=== PATIENT | male | born 1945 | race Caucasian/White ===

== ENCOUNTER 2019-06-05 12:58 | Inpatient (IN) | payer OTHER, BC ==
[~2019-06-05] VITALS: Ht 180.3 cm; Wt 65.3 kg
[2019-06-05 12:58] VITALS: BP 138/70
[2019-06-05 13:17] LABS: ABSOLUTE NEUTROPHILS 4.3 thou/uL (1.4-8.2); BASOPHILS 0.4 % (0.0-2.0); HEMATOCRIT 38.3 % (42.0-52.0); HEMOGLOBIN 12.7 gm/dL (14.0-18.0); LYMPHOCYTES 18.6 % (24.0-44.0); MCH 29.7 pg (26.0-34.0); MCHC 33.1 g/dL (28.0-37.0); MCV 89.5 fL (80.0-100.0); MONOCYTES 8.3 % (1.0-8.0); PLATELET COUNT 175 thou/uL (150-400); POLYS 71.7 % (36.0-66.0); RBC 4.28 mil/uL (4.50-6.00); RDW 14.4 % (10.5-14.5)
[2019-06-05 13:18] LABS: URINE BILIRUBIN NEGATIVE (Negative); URINE BLOOD NEGATIVE (Negative); URINE CLARITY CLEAR; URINE COLOR YELLOW; URINE GLUCOSE-RANDOM* NEGATIVE (Negative); URINE KETONES NEGATIVE (Negative); URINE LEUKOCYTES-REFLEX NEGATIVE (Negative); URINE NITRITE-REFLEX NEGATIVE (Negative); URINE PROTEIN (DIPSTICK) NEGATIVE (Negative); URINE UROBILINOGEN 0.2 E.U./dl (0.2-1.0)
[2019-06-05] MEDS ORDERED: NORVASC10 MG PO (13:23)
[2019-06-05] MEDS ORDERED: ABILIFY 5 MG TAB5 MG PO (13:23)
[2019-06-05] MEDS ORDERED: DEPAKOTE SPRIN125 MG PO (13:24)
[2019-06-05] MEDS ORDERED: BENEFIBER1 EAC1 PO (13:24)
[2019-06-05] MEDS ORDERED: ASPIR 8181 MG PO (13:24)
[2019-06-05] MEDS ORDERED: NORCO 5-325 TA1 EAC1 PO (13:24)
[2019-06-05] MEDS ORDERED: UNICOMPLEX M TA1 TA1 PO (13:25)
[2019-06-05] MEDS ORDERED: LEVAQUIN 500 M500 M2 PO (13:25)
[2019-06-05] MEDS ORDERED: REMERON15 MG PO (13:25)
[2019-06-05] MEDS ORDERED: SEROQUEL 25 MG25 M1 PO ×2 (13:26→13:27)
[2019-06-05] MEDS ORDERED: CLARITIN10 MG PO (13:27)
[2019-06-05] MEDS ORDERED: ZOLOFT50 MG PO (13:27)
[2019-06-05] MEDS ORDERED: ATIVAN0.5 MG PO (13:27)
[2019-06-05] MEDS ORDERED: ZANTAC 150MG T150 M1 PO (13:27)
[2019-06-05] MEDS ORDERED: AMBIEN 5 MG TABL5 M1 PO (13:28)
[2019-06-05] MEDS ORDERED: MAPAP500 MG PO (13:28)
[2019-06-05 13:29] LABS: ANION GAP 5 mmol/L (7-16); BUN 24 mg/dL (7-18); CALCIUM 9.5 mg/dL (8.5-10.1); CHLORIDE 104 mmol/L (98-107); CO2 32 mmol/L (21-32); CREATININE 1.1 mg/dL (0.7-1.3); GLUCOSE 112 mg/dL (74-106); POTASSIUM 3.8 mmol/L (3.5-5.1); SODIUM 141 mmol/L (136-145)
[2019-06-05 13:31] LABS: AMP/METHAMP Negative (Negative); BARBITURATES Negative (Negative); BENZODIAZEPINES POSITIVE (Negative); COCAINE Negative (Negative); METHADONE Negative (Negative); OPIATES POSITIVE (Negative); PCP Negative (Negative)
[2019-06-05 13:38] LABS: TROPONIN-I <0.06 ng/mL (<0.06)
--- NOTE | 2019-06-06 00:35 | NUR ---
Pt still attempted to get out of bed. pt still agitated and combative. security called to help reposition pt back in bed
--- NOTE | 2019-06-06 08:01 | EKG ---
[address] [address] ELECTROCARDIOGRAM REPORT Name: BIANCAANATOLIY Room #: 170-7 ADM IN M.R.#: [id number] Admission: 06/05/19 Attend Phys: Kaleb Ugalde DO Discharge: Date of : 41 Report #: [id number] THIS REPORT FOR: //name// [facility] ED Test Date: 2019-06-05 Test Time: 13:12:55 Pat Name: ANATOLIY VALENZUELA Department: Room: 170 Gender: M Technical Writing Lead/Mgr: elroy : 1945 Requested By: Toribio Mckinney Order Number: [id number] MD: Charlie Foster Measurements Intervals Rosie Rate: 108 P: 86 MN: 182 QRS: 82 QRSD: 93 T: 83 QT: 332 QTc: 445 Interpretive Statements Sinus tachycardia Ventricular premature complex Borderline right axis deviation Artifact in lead(s) I,II,aVR,aVL No previous ECG available for comparison Electronically Signed On 06-06-2019 8:01:25 CDT by Charlie Foster [email or web address] <ELECTRONICALLY SIGNED> By: Charlie Foster MD [id number] 11 11 Charlie Foster MD /DANE
--- NOTE | 2019-06-06 08:43 | NUR ---
CALLED AND MESSAGE LEFT TO CHECK STATUS ON BED.
--- NOTE | 2019-06-06 09:00 | NUR ---
ED NURSE CALLED TO GET ROOM # AND GIVE REPORT TO INPATIENT NURSE, WAS TOLD THAT THE NURSE TAKING THE PT WAS ABOUT TO STEP OFF THE UNIT AND LEAVING ONLY 1 NURSE ON THE UNIT WITH 16 PATIENTS, AND ED NURSE WAS ASKED TO WAIT 15 MINUTES TO CALL AGAIN AND GIVE REPORT
--- NOTE | 2019-06-06 09:35 | NUR ---
PT ARRIVED TO ROOM VIA CART FROM ER WITH . PT RESISTIVE TO VITALS AND CARES. ABLE TO FINISH ADMISSION WITH NUVIA MCGRATH. PT HOLDING HANDS AND RESTLESS. PT TRYING TO GET OUT OF BED. GOT PT SHOES FROM HOME. PT WALKING AROUND ROOM WITH STAFF OR . PT NOT ABLE TO CARRY A CONVERSATION.
[2019-06-06 09:51] VITALS: BP 139/87
--- NOTE | 2019-06-06 12:25 | NUR ---
INITIATED 1:1 CARE FOR SAFETY FOR PATIENT.
--- NOTE | 2019-06-06 16:21 | NUR ---
DENILSON spoke with yusra OREILLY for [facility] [phone]. She will be working with pt's spouse regarding inpt stay and added support. Yusra would like an update when pt is d/c to provide continuation of care.
--- NOTE | 2019-06-06 16:25 | NUR ---
GAVE IM INJECTION OF ANTIBIOTIC. PT NEEDED HELD BY ANOTHER RN. PT GRABBING STAFF ARMS AND PULLING THEM. PT NOT RESPONDING TO COMMANDS. PT NOT WANTING TO SIT AT TABLE FOR DINNER. PT DID TAKE DEPAKOTE SPINKLE WITH SOME PUDDING. DID SPIT AFTER ON ROOM MATE BED, LOOKED LIKE SALIVA.
--- NOTE | 2019-06-06 17:04 | NUR ---
ADM ZYPREXIA 5MG IM FOR AGITATION. PT IN DINNING ROOM AND NOT WANTING TO EAT, PT PULLING AND GRABBING STAFF ARMS, PT INTRUSIVE WITH OTHER PATIENTS. PT PULLING AT FOOD CART.
--- NOTE | 2019-06-07 05:42 | NUR ---
191-Report received and care assumed. Nixon was wandering around the day room and hallways with the 1 on 1 sitter near him. He was notably intrusive with others in the day room, getting very close to them and touching them. He was noted responding to AH picking at unseen objects near the floor, at times. He paced fast into others rooms also. He did not speak words, pulled at staff with his arms and swung at staff also. He was medication compliant with meds. crushed, water was encouraged with staff feeding him, but he drank very little if any, and he spit it out on the floor also. He was given prn Zyprexa 5 mg. po at 2105 for agitation and it was somewhat effective. He then slept for an hour then became restless laying in bed, talking to unseen others moving about almost constantly. called about his insomnia and restlessness and order given for Seroquel 25 mg. po x 1 now at 0030, which was ineffective. He was not aggressive but was restless with insomnia and talking to unseen others all nite.
[2019-06-07 07:00] VITALS: BP 139/80
--- NOTE | 2019-06-07 07:04 | NUR ---
The pt. was aggressive with cares this morning and was given Zyprexa 5 mg. po prn. Will monitor for effective from day shift nurse.
[2019-06-07 08:00] VITALS: BP 139/80
--- NOTE | 2019-06-07 10:36 | NUR ---
assumed pt care report received from nurse. pt is alert, oriented to person. lying in bed. vss. medication given crushed with apple sauce. sitter 1:1 in room. pt refused breakfast. pt became agitated and try to get out of bed around 1000. thorazine im given as ordered. bed alarm on. sitter in room. will continue to monitor
[2019-06-07 19:43] VITALS: BP 132/79
--- NOTE | 2019-06-08 03:27 | NUR ---
Care assumed of patient at 1915: Patient laying in bed at start of shift with sitter at bedside. Patient restless and agitated. Patient sliding up and down in bed, rolling side to side, kicking legs out of bed. Patient grabbing at the air, pointing to the anderson. Unknown what patient is seeing. Patient cursing toward the air. Requiring constant re-direction which is not helpful or effective. Patient declining to leave on a brief, pants, blankets. Staff attempted to provide a snack and drink, which he declined. Staff assisted with urinal, which he was not able to use. Patient squeezed and broke the cup he was holding and spilled water on staff. Linens needed to be changed. Patient hitting, cursing and kicking. Required staff x3. Patient did take one small bite of pudding with medications crushed. After 1 hour, patient remained aggressive and restless. Patient provided Thorazine IM. Patient was able to fall asleep approximately 1 hour later and has been resting quietly since.
[2019-06-08 07:50] VITALS: BP 147/78
--- NOTE | 2019-06-08 11:09 | NUR ---
SOMULENT SO FAR THIS AM-ROUSABLE TO TACTILE/VERBAL STIMULI- DID EAT BREAKFAST AND TAKE AM MEDS WHEN FED BY THIS RN. NOTED TO HAVE SOME COUGHING AFTER DRINKING THIN LIQUIDS AND MD NOTIFIED OF ABOVE DURING RTREATMENT TEAM. BP 147/78-P-96 R-14. WILL STAY AWAKE FOR BRIEF PERIODS OF TIME BEFORE FALLING BACK TO SLEEP-DEEP SNORING RESPIRATONS NOTED.
--- NOTE | 2019-06-08 12:20 | NUR ---
1130 awake and attempting to crawl out OF BED-COMBATIVE WITH BRIEF CHANGE AND PERINEAL CARE-HITTING,ATTEMPTING TO PINCH AND KICK NURSING STAFF-TOOK DENTURES OUT AND THREW THEM AT NURSE. ASSISTED INTO WC WITH 3 STAFF AND LAP BELT APPLIED-TO DINING ROOM AND SWALLOW EVAL BEING ATTEMPTED HOWEVER PT IS SWINGING AT SPEECH THERAPY STAFF AND ATTEMPTING TO KICK HER. THORAZINE 25MG IM IN LEFT DELTOID FOR SEVERE AGITATION. REMAINS ON 1;1
[2019-06-08 19:32] VITALS: BP 96/84
[2019-06-09 09:16] VITALS: BP 114/86
--- NOTE | 2019-06-09 10:17 | H ---
[facility] [place] [address] HISTORY AND PHYSICAL Name: ANATOLIY VALENZUELA Room #: 526A-A ADM IN M.R.#: [id number] Admission: 06/05/19 Attend Phys: Kaleb Ugalde DO Discharge: Date of : 43 Report #: [id number] THIS REPORT FOR: //name// CC: Kaleb Ugalde FAM unknown NO PCP DATE OF SERVICE: 06/05/2019 INPATIENT PSYCHIATRIC EVALUATION ATTENDING PHYSICIAN: Kaleb Ugalde DO MANAGER STRATEGIC: Jama Iglesias MD REASON FOR ADMISSION: The patient will sign out 911 from the [facility] afternoon of 06/05/2019 and was kept in the Emergency Room overnight due to lack of bed availability. HISTORY OF PRESENT ILLNESS: A 73-year-old male with an advanced Alzheimer's dementia. He had been combative for 3 days at the [facility] in [place], [place], was running into people, grabbing, spitting, he spit in the eye of police liaison. He has not had a recent fever. Glucose is 111 en route. PAST MEDICAL HISTORY: Alzheimer's disease. He was placed in split pass by EMS staying for protection. He was aggressive in the ER. HOME MEDICATIONS: Include amlodipine, aripiprazole, aspirin, Depakote 125 mg p.o. t.i.d., levofloxacin 500 mg daily, mirtazapine 15 mg p.o. at bedtime, Seroquel 25 mg p.o. b.i.d. and 25 mg p.o. at bedtime, ranitidine, sertraline 50 mg daily and p.r.n. Ambien. ALLERGIES: Include LISINOPRIL and LOSARTAN. REVIEW OF SYSTEMS: Cannot be obtained due to the patient will not answer questions. Weight 70.31 kilograms. PHYSICAL EXAMINATION: Nonfocal. He had an EKG done in the ER, which showed ventricular premature complex. No STEMI, sinus tachycardia, rate was 108. On his lab work from the ER, sodium 141, potassium 3.8, chloride 104, bicarbonate 32, anion gap 5, BUN 24, creatinine 1.1, estimated GFR 65, glucose 112, calcium 9.5. Troponin less than 0.06. White blood cell count 6.0, H and H 12.7 and 38.3, platelet count 175. UDS is positive for opiates, benzodiazepines. Urinalysis was negative. CT scan showed ventricular and sulcal prominence may represent atrophy, a component of NPH is not excluded. At this point, I would [address] [address] HISTORY AND PHYSICAL Name: ANATOLIY VALENZUELA Lyric Room #: 526A-A ADM IN M.R.#: [id number] Admission: 06/05/19 Attend Phys: Kaleb Ugalde, DO Discharge: Date of : 43 Report #: [id number] view his dementia as way to progress to warrant investigation for normal pressure hydrocephalus. In addition, MRI was from 08/2018, which showed ventricular and sulcal prominence is stable and unchanged, so the MRI comparison did not suggest NPH. His , I spoke to Zoila who is kind enough to give a us a typed illness summary. PAST MEDICAL AND SURGICAL HISTORY: On 05/12/2019, hospitalized for UTI and aggressive combative behavior. On 11/27/2018, admitted to the [facility]. On 08/15/2017, excision of cysts from the right shoulder. On 07/11/2017, excision of squamous cell carcinoma on the right arm. On 01/05/2016, excision of basal cell carcinoma on the left arm. 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 Radical prostatectomy due to adenocarcinoma. On 01/04/2013, rotator cuff repair, left shoulder. In 2014, dementia was diagnosed. Tonsillectomy as a child. Rheumatoid arthritis diagnosed in 2006 and treatments were discontinued on 2016. PRIMARY CARE PHYSICIAN: Dr. Wilfrid Gagnon. is his DPOA. VITAL SIGNS: Temperature 36.6, pulse 79, respirations 18, BP 139/80. HISTORY: Combative in [place]. FAMILY HISTORY: Alzheimer disease, significant for several biological relatives. CURRENT MEDICATIONS: In the hospital, multivitamin 1 tab p.o. daily, famotidine 20 mg at bedtime, Depakote 250 mg t.i.d. Other medications include amlodipine 10 mg p.o. daily, p.r.n. olanzapine. I think this patient discussed risks, benefits, alternatives with the including the risk of and stroke. He is so profoundly demented and so psychomotorically agitated that I am going to go ahead and use chlorpromazine regimen. PHYSICAL EXAMINATION: Lying in bed, shaking. MENTAL STATUS EXAMINATION: This is a well-developed, thin, disheveled grossly impaired male. Concentration is grossly impaired. Speech variably verbal response and making some psychomotor agitation. No psychomotor retardation. Mood and affect were congruent, constricted. No obvious self-harm or homicidality. Memory impaired. Insight impaired. Judgment impaired. Fund of knowledge well below average. FORMULATION: A 73-year-old male admitted for dementia with behavioral disturbance. [facility] [address] [place] [address] HISTORY AND PHYSICAL Name: ANATOLIY VALENZUELA Room #: 526A-A ADM IN M.R.#: [id number] Admission: 06/05/19 Attend Phys: Klaeb Ugalde DO Discharge: Date of : 43 Report #: [id number] DIAGNOSES: Major neurocognitive disorder, likely due to Alzheimer's disease with behavioral disturbance, severe. Medical comorbidities include hypertension, rheumatoid arthritis, not currently on treatment. PLAN: Discontinue other antipsychotics, start Thorazine 25 mg t.i.d. with 12.5 mg IM. ESTIMATED LENGTH OF STAY: 10-14 days. Time spent on interview, review of records, coordination of care of this patient is approximately 60 minutes. strengths: , insuresd weaknesses: advanced dementia, fragility <ELECTRONICALLY SIGNED> By: Kaleb Ugalde DO 06/09/19 1017 1015 1137 Kaleb Ugalde DO /nt
--- NOTE | 2019-06-09 17:34 | NUR ---
HAS BEEN UP IN CHAIR WITH 1:1 STAFF, HE IS COMBATIVE AND VERY LABILE, HE HAS STRUCK OUT AT STAFF, SPIT FOOD, SMASHED HIS CUP WITH FLUIDS IN IN HAS REQUIRED FEEDING, BUT DOES NOT ALWAYS SWALLOW HIS FOOD, HE HAS TAKEN MEDS AT TIMES, BUT SPIT OUT HIS MORNING DOSES OF MEDICATIONS, HE RECEIVED THORAZINE IM PRN FOR REFUSAL OF MEDS. HE DID CALM DOWN SOME BUT REMAINED FIGITY AND UNCONTROLLED, STAFF VERY CAUTIOUS WHEN COMING IN ARMS LENGTH, UNSURE HOW HE WOULD REACT, INCONTINENT OF URINE. WILL CONTINUE TO MONITOR BEHAVIORS AND FOR SAFETY.
--- NOTE | 2019-06-09 22:25 | NUR ---
Care assumed of patient at 1915: Patient alert and oriented to person only. Patient confused and forgetful. Patient laying in bed at start of shift. 1:1 sitter at bedside. Patient incontinent of bladder. Patient observed picking at the air, cursing and mumbling to nothing that is visibly present. Patient combative while completing toileting hygiene. Patient took HS medication crushed without difficulty. Attempted to provide HS snack of applesauce. Patient closed lips tight and declined to eat any. Patient fidgety and restless at times. Patient grabbing, hitting and kicking staff when agitated. Once ADLs are completed, patient becomes calmer and appears to be resting quietly at this time.
--- NOTE | 2019-06-09 23:39 | NUR ---
Late entry 06/09/19 0300: Patient remains 1:1. Patient seated in w/c in dayroom at dining table with sitter at start of shift. Patient fidgety, tapping the table, moving arms about, reaching for items in the air that are not present. Patient mumbling and cursing spontaneously. Patient swinging his arms. Nurse not able to complete initial assessment due to him hitting, kicking, trying to rock back in w/c. Nurse administered Thorazine IM at 1916. Patient appeared to become more aggressive after medication administered. Nurse attempted to provide scheduled HS medication crushed in pudding. Patient spit medication and pudding at nurse. Patient attempted to bite nurse at that time. MD notified. Order obtained for Thorazine 25mg IM 1x dose at 2044. Patient had difficulty settling down. Staff assisted patient lay down in which he slept a total of 5 hours. Patient appears to be having VH. Patient aggressive when ADL toileting cares are provided. No s/s of pain or discomfort. No signs of aggression as long as no assessment or ADLs are being completed.
--- NOTE | 2019-06-10 16:42 | NUR ---
UP IN DAYROOM IN HIS W/C HE DOES HAVE LAP CHENG FOR SAFETY, HE STILL IS VERY FIGITY AND ATTEMPTING TO STRIKE OUT AT STAFF AND OTHER PEERS, HE EATS VERY LITTLE AND JUST A FEW BITS EACH MEAL, HE DOES NOT DO WELL WITH FLUIDS, HAS REFUSED AND WILL GRAB THE CUP AND SMASH IT WITH HIS RAIL SIGNAL MECHANIC, HE HAS BEEN COMPLIANT WITH MEDICATION TODAY SO FAR, HE WAS AMBULATED TO HIS ROOM AND WAS ASSISTED BY 2 STAFF DUE TO POOR BALANCE, HE IS INCONT. OF BLADDER, HAS HAD NO BM TODAY, ALERT BUT DISORIENTED AND DISORGANIZED. CONTINUE TO MONITOR FOR BEHAVIORS AND SAFETY.
[2019-06-10 23:39] VITALS: BP 110/68
--- NOTE | 2019-06-11 01:59 | NUR ---
PATIENT WAS UP IN WC IN MAIN DINING ROOM AREA WHEN I CAME ON SHIFT AT 1900. PATIENT WAS RESTLESS AND HAD A SPONGE BLOCK IN HAND THAT HE KEPT SQUEEZING TIGHTLY. HE WAS TENSE AND WOULD PUSH MY HANDS AWAY IF HE THOUGHT I WAS TRYING TO TAKE SOMETHING FROM HIM. HE HAD THE BUSY APRON THAT I GAVE TO HIM AND HE FIDGETED WITH IT FOR A WHILE. PATIENT WAS TAKEN TO BED AND CHANGED AT BEDTIME. HE REMAINED TENSE AND SWINGING WHEN TRYING TO BE PUT TO BED. CHLORPROMAZINE 25MG IM GIVEN AT 2000 FOR AGITATION. HE CALMED AND HAS BEEN SLEEPING SOUND. HIS BP AT MIDNIGHT WAS 110/68. HE DID TAKE HIS MIDNIGHT DOSE OF CHLORPROMAZINE CRUSHED IN ICECREAM. PATIENT WITH ROUTINE ROUNDS AND CHECKED FOR INCONTINENCE EVERY 2 HOURS. BED IN LOW POSITION AND BED ALARM ON.
--- NOTE | 2019-06-11 06:24 | NUR ---
PATIENT INCONTINENT. CLEANED PERINEAL AREA WITH CLEANSING LOTION AND WET CLOTH. SCROTUM IS PINK/RED IN COLOR. LEFT AREA OPEN TO AIR WHILE HE'S IN BED. NO OPEN SORES.
[2019-06-11 08:30] VITALS: BP 131/96
--- NOTE | 2019-06-11 08:45 | NUR ---
PT SITTING AT DINNING ROOM TABLE FOR BREAKFAST. PT FIGITING WITH LAP CHENG, TRAY ITEMS, AND PUSHING TABLE AWAY FROM SELF. SPEECH THERAPY HERE TO SEE HIM TO EVALUATE SWALLOWING. PT NOT COUGHING WITH INTAKE OF WATER OR FOOD. PT TOOK MEDS OK FOR NURSE. PT UNABLE TO SAY NAME. PT BABBLES.
[2019-06-11 09:38] VITALS: BP 131/96
--- NOTE | 2019-06-11 17:58 | NUR ---
PT NEEDED ASSISTANCE WITH EATING TONIGHT. PT COOROPERATIVE WITH FEEDING. PT TOOK MEDS IN ICE CREAM.
[2019-06-11 20:50] VITALS: BP 129/66
[2019-06-11 21:57] VITALS: BP 129/66
--- NOTE | 2019-06-12 02:42 | NUR ---
PT RESTING QUIETLY IN BED AT START OF EVENING. HS MEDS CRUSHED AND GIVEN WITH ICE CREAM. RETURNED TO SLEEP AND IS CURRENTLY RESTING QUIETLY. MIDNIGHT THORAZINE HELD PATIENT IS SLEEPING.
[2019-06-12 07:30] VITALS: BP 111/73
--- NOTE | 2019-06-12 07:30 | NUR ---
PT SITTING IN DINNING ROOM AT THIS TIME. PT ABLE TO WALK WITH ASSISTANCE. PT RAMBLES AND FIGITS, APPEARS TO HALLUCINATE, TALKING TO PEOPLE AND POINTING. PT NOT ABLE TO ENGAGE IN CONVERSATION. PT NEEDS ASSIST WITH ADLS AND WITH FEEDING. PT TAKES MEDS CRUSHED WITHOUT ANY ISSUES.
[2019-06-12 20:01] VITALS: BP 141/76
--- NOTE | 2019-06-12 22:27 | NUR ---
Care assumed of patient at 1915: Patient laying in bed at start of shift. Patient easily arousable to voice. Patient alert to name only. Patient confused and forgetful. Patient easily agitated and irritable. Patient visualized cursing, mumbling, picking at the air. Appears to be experiencing tactile and visual hallucinations. Patient verbally aggressive while completing nam care and changing brief. Patient not as physically aggressive as he has been over the last week. Patient incontinent of bladder. Patient took HS medication crushed in yogurt. Declined any other bites of yogurt for snack. Drank approximately 60cc of water then started to spit it at nurses. Patient not able to answer questions appropriately. Primarily mumbles and curses. No s/s of pain or discomfort. Patient resting quietly in bed at this time.
[2019-06-13 05:48] LABS: CALCIUM 9.5 mg/dL (8.5-10.1); CREATININE 1.4 mg/dL (0.7-1.3); POTASSIUM 3.8 mmol/L (3.5-5.1)
[2019-06-13 09:00] VITALS: BP 105/82
--- NOTE | 2019-06-13 13:52 | NUR ---
SITTING IN DAYROOM IN WHEELCHIAR WITH LAP CHENG AT START OF SHIFT-YELLING OUT LOUDLY-SPEECH IS INCOHERENT AND NONSENSICLE-BUT HAS ANGRY FACIAL EXPRESSION AND IS WAVING FIST AT STAFF SITTING NEXT TO HIM. SPITTING OUT AM MEDS AND BREAKFAST-SWINGING AT NURSING STAFF OR GRABBING HOLD AND PINCHING SKIN-TWISTING ENVIRONMENTAL PROGRAMS MANAGER ARM AND REFUSING TO LET GO. THORAZINE 50MG IM GIVEN IN LEFT DELTOID-ATTEMPTING TO BITE AND SCRATCH NUSING STAFF.
--- NOTE | 2019-06-13 15:12 | NUR ---
Date of Admission: 06/05/19 Date of Activity Therapy Assessment: 06/09/19 Activity Goal: Increase positive sensory stimulation and engagement Initial Goal: 1 Group activity/day Weekly progress towards goal: Did not achieve goals Group participation level: None Behaviors observed: Patient has not tolerated recreational therapy visits since admission. Patient has been provided activity apron and soft building blocks which he has shown little interest in - i.e. throwing across table. Patient has otherwise been combative or yelling out for any further attempts. Plan: Continue to offer 1:1 activity as tolerated
[2019-06-13 20:41] VITALS: BP 147/82
[2019-06-13 23:59] VITALS: BP 147/82
--- NOTE | 2019-06-14 02:14 | NUR ---
PATIENT HAS BEEN SLEEPING ALL OF SHIFT. HE IS DIFFICULT TO AWAKEN AND BREATHING IS SHALLOW WITH APNEA AT TIMES AND THEN BACK TO SHALLOW BREATHING. UNABLE TO GIVE PATIENT ALL OF HIS HS MEDS D/T COULD NOT AWAKEN HIM ENOUGH TO SWALLOW. AFTER SOME TIME WAS ABLE TO HAVE PATIENT SWALLOW ONE TSP OF HIS CRUSHED MEDS IN YOGURT. PATIENT APPEARS COMFORTABLE IN BED. HE IS CHECKED FOR INCONTINENCE AND TURNED NEEDED. BED IN LOW POSITION AND BED ALARM ON. MONITORING FREQUENTLY. HOB ELEVATED SLIGHTLY. CONTINUING TO MONITOR.
--- NOTE | 2019-06-14 07:28 | NUR ---
Called this morning and informed her that pt will not discharge today due to continuing behaviors. voiced understanding. Also called Vero Beatty at [facility] and left a VM with same message related to his hospice care. Placed order for hospice and letter (on an Rx pad) in chart for later use.
[2019-06-14 09:29] VITALS: BP 145/63
--- NOTE | 2019-06-14 22:55 | NUR ---
Care assumed of patient at 1915: Patient sleeping in bed at start of shift. Patient continues to rest in bed at this time. Patient is somewhat arousable to touch. Patient will occasionally mumble but is not understood what he is trying to state. Patient not visualized pointing or picking at the air this evening. No s/s of AH/VH or tactile hallucinations observed. No aggression or agitation observed at this time. Patient took HS medication crushed without difficulty. Oral care has been provided x1 thus far this shift. Patient being turned every 2 hours. Incontinent of bladder x1. No s/s of pain or discomfort noted at this time. HR WNL. Respirations have been between 6-10 for this nurse. Patient has had a couple periods of apnea. Skin remains pink and intact. Patient currently receives comfort measures on hospice services. Pupils have not been reactive for this nurse. Order obtained to d/c Multivitamin po daily. Order noted. Nurse monitoring patient for any further decline and will communicate with family as indicated.
[2019-06-15 10:59] VITALS: BP 111/65
--- NOTE | 2019-06-15 13:39 | NUR ---
0700 report given by overnight shift, patient is in last stage of life. Patient's family in room with him, patient is getting morphine q 30 minutes for comfort. Chapilin has been to see patient, staff providing pallative care. Nursing maintaining comfort for and family.
--- NOTE | 2019-06-20 15:53 | D ---
[facility] [place] [address] DISCHARGE SUMMARY Name: ANATOLIY VALENZUELA Room #: 526A-A [place] ..#: [id number] Admission: 06/05/19 Attend Phys: Kaleb Ugalde DO Discharge: 06/15/19 Date of : 41 Report #: [id number] THIS REPORT FOR: //name// CC: Kaleb Ugalde FAM unknown NO PCP DATE OF SERVICE: 06/15/2019 DATE OF : 06/15/2019 TIME OF : Officially pronounced by this author at 1632 hours. ATTENDING PSYCHIATRIST THIS ADMISSION: Kaleb Ugalde DO. BAR HOSTESS: Dov Roe MD DIAGNOSES AT TIME OF : Major neurocognitive disorder, likely due to Alzheimer's disease with behavioral disturbance. The patient had a global deterioration 36 hours prior to time of . The palliative care order set had been in place for roughly 24 hours prior to time of . His and other relatives were at bedside when the patient . Obviously, there is no discharge medications. REASON FOR ADMISSION: The patient was sent from the [facility] in [place]. He had been combative 3 days prior to admission and hitting, spitting, apparently spitting at the police patrol lieutenant. HOSPITAL COURSE: The patient was admitted to the Geriatric Psychiatry Unit. Unfortunately, the patient had poor response to care requiring tranquilizers several days before he became bedridden. The patient never was able to have a coherent conversation. The patient had not been on hospice prior to admission. Due to his level of combativeness, agitation, it was not feasible for the patient to return to the nursing facility for hospice care. Myself and the staff made our best efforts to accommodate a good palliative care in the final couple of days of his stay. The patient in his bed as summarized at the beginning of note. I have entered to separate note of pronouncement. <ELECTRONICALLY SIGNED> By: Kaleb Ugalde DO 06/20/19 1553 [id number] Kaleb Ugalde DO /nt
== END 2019-06-15 18:45 | DRG 56 ==
LOC: ER 12:58 → SBH 18:05 → EROBS 18:05 → SBH 06-06 09:25
PROVIDERS: Emergency Medicine; ADMIT Psychiatry & Neurology Psychiatry
DX: G30.9 Alzheimer's disease, unspecified (principal); E43 Unspecified severe protein-calorie malnutrition; F01.51 Vascular dementia, unspecified severity, with behavioral disturbance; F02.81 Dementia in other diseases classified elsewhere, unspecified severity, with behavioral disturbance; E87.1 Hypo-osmolality and hyponatremia; S00.83XA Contusion of other part of head, initial encounter; M06.9 Rheumatoid arthritis, unspecified; I10 Essential (primary) hypertension; Z79.82 Long term (current) use of aspirin; Z79.899 Other long term (current) drug therapy; X58.XXXA Exposure to other specified factors, initial encounter; Z88.8 Allergy status to other drugs, medicaments and biological substances; Y93.89 Activity, other specified; Y92.89 Other specified places as the place of occurrence of the external cause; Y99.8 Other external cause status
CPT/HCPCS: 10880